=== PATIENT | female | born 1985 | race Caucasian/White ===

== ENCOUNTER 2018-01-09 12:17 | Emergency (ER) | payer OTHER ==
[2018-01-09] MEDS ORDERED: LORAZEPAM 0.5 MG TABLET PO ONE (12:47)
--- NOTE | 2018-01-09 12:57 | ER Document Report ---
ED General - General Chief Complaint: Shortness Of Breath Stated Complaint: BLOOD PRESSURE ISSUES Time Seen by Provider: 01/09/18 12:46 Information source: Patient Notes: Chief complaint: Elevated blood pressure History of complain:( obtained from----patient) 32 years old female with a history of anxiety not taking any medications have been feeling well racing of emotions, unable to sleep, checked her blood pressure and her mom's office it was over 200 therefore came to the ED. She has been having these symptoms periodically. She also had a hysterectomy wondering whether it is a hormonal imbalance causing this symptoms. She was taking anti-anxiolytic medicines in the past. No suicidal homicidal ideation Onset: As above Duration: Gradual Severity: Moderate Quality: As described above Context: History of anxiety Exacerbating factor and relieving factors: REVIEW OF SYSTEMS: CONSTITUTIONAL : Denies fever, chills, or sweats. Denies recent illness. EENT: Denies eye, ear, throat, or mouth pain or symptoms. Denies nasal or sinus congestion or discharge. Denies throat, tongue, or mouth swelling or difficulty swallowing. CARDIOVASCULAR: Denies chest pain. Denies palpitations or racing or irregular heart beat. Denies ankle edema. RESPIRATORY: Denies cough, cold, or chest congestion. Denies shortness of breath, difficulty breathing, or wheezing. GASTROINTESTINAL: Denies distention. Denies nausea, vomiting, or diarrhea. Denies blood in vomitus, stools, or per rectum. Denies black, tarry stools. Denies constipation. GENITOURINARY: Denies difficulty urinating, painful urination, burning, frequency, blood in urine, or discharge. FEMALE GENITOURINARY: Denies vaginal bleeding, heavy or abnormal periods, irregular periods. Denies vaginal discharge or odor. MUSCULOSKELETAL: Denies back or neck pain or stiffness. Denies joint pain or swelling. SKIN: Denies rash, lesions or sores. HEMATOLOGIC : Denies easy bruising or bleeding. LYMPHATIC: Denies swollen, enlarged glands. NEUROLOGICAL: Denies confusion or altered mental status. Denies passing out or loss of consciousness. Denies dizziness or lightheadedness. Denies headache. Denies weakness or paralysis or loss of use of either side. Denies problems with gait or speech. Denies sensory loss, numbness, or tingling. Denies seizures. PSYCHIATRIC: Denies anxiety or stress. Denies depression, suicidal ideation, or homicidal ideation. ALL OTHER SYSTEMS REVIEWED AND NEGATIVE. PHYSICAL EXAMINATION: GENERAL: Well-appearing, well-nourished and in no acute distress. HEAD: Atraumatic, normocephalic. EYES: Pupils equal round and reactive to light, extraocular movements intact, conjunctiva are normal. ENT: Nares patent, oropharynx clear without exudates. Moist mucous membranes. NECK: Normal range of motion, supple without lymphadenopathy LUNGS: Breath sounds clear to auscultation bilaterally and equal. No wheezes rales or rhonchi. HEART: Regular rate and rhythm without murmurs ABDOMEN: Soft, nontender, nondistended abdomen. No guarding, no rebound. No masses appreciated. Examination of genitals-deferred Musculoskeletal: Normal range of motion, no pitting or edema. No cyanosis. NEUROLOGICAL: Cranial nerves grossly intact. Normal speech, normal gait. Normal sensory, motor exams PSYCH: Normal mood, normal affect. Appears very anxious SKIN: Warm, Dry, normal turgor, no rashes or lesions noted. Dictation was performed using [employer] voice recognition software discharge TRAVEL OUTSIDE OF THE [place] IN LAST 30 DAYS: No - HPI Notes: Dictated - Related Data Allergies/Adverse Reactions: acetaminophen [From Percocet] Allergy (Verified 01/09/18 12:18) oxycodone [From Percocet] Allergy (Verified 01/09/18 12:18) Penicillins Allergy (Verified 01/09/18 12:18) Past Medical History - Social History Smoking Status: Never Smoker Frequency of alcohol use: Rare Drug Abuse: None Family History: Reviewed & Not Pertinent Patient has suicidal ideation: No Patient has homicidal ideation: No - Past Medical History Cardiac Medical History: Denies: Hx Coronary Artery Disease, Hx Heart Attack, Hx Hypertension Pulmonary Medical History: Denies: Hx Asthma, Hx Bronchitis, Hx COPD, Hx Pneumonia Neurological Medical History: Denies: Hx Cerebrovascular Accident, Hx Seizures Renal/ Medical History: Denies: Hx Peritoneal Dialysis Musculoskeletal Medical History: Denies Hx Arthritis Psychiatric Medical History: Reports: Hx Depression - post- Past Surgical History: Reports: Hx Section, Hx Hysterectomy, Hx Tubal Ligation - Immunizations Hx Diphtheria, Pertussis, Tetanus Vaccination: Yes Review of Systems - Review of Systems Notes: Dictated Physical Exam - Vital signs Vitals: Temp Pulse Resp BP Pulse Ox 98.0 F 93 16 118/77 100 01/09/18 12:30 01/09/18 12:30 01/09/18 12:30 01/09/18 12:30 01/09/18 12:30 - Notes Notes: Dictated Course - Vital Signs Vital signs: Temp Pulse Resp BP Pulse Ox 98.0 F 93 16 118/77 100 01/09/18 12:30 01/09/18 12:30 01/09/18 12:30 01/09/18 12:30 01/09/18 12:30 Discharge - Discharge Clinical Impression: Anxiety attack Condition: Fair Disposition: HOME, SELF-CARE Instructions: Anxiety ([facility]) Prescriptions: Buspirone HCl [Buspar 5 mg Tablet] 1 tab PO BID #60 tab
--- NOTE | 2018-01-09 13:25 | EKG REPORT ---
SEVERITY:- NORMAL ECG - SINUS RHYTHM : Confirmed by: Michael Perera MD 09-Jan-2018 13:24:35
[2018-01-09 13:59] VITALS: BP 121/71
== END 2018-01-09 14:00 | disposition home or self-care (01) ==
LOC: ER 12:17
DX: F41.9 Anxiety disorder, unspecified (principal); Z90.710 Acquired absence of both cervix and uterus; Z88.6 Allergy status to analgesic agent; Z88.5 Allergy status to narcotic agent; Z88.0 Allergy status to penicillin
CPT/HCPCS: 93005; 93010; 99284

== ENCOUNTER 2018-07-19 08:49 | Emergency (ER) | payer OTHER ==
--- NOTE | 2018-07-19 10:21 | ER Document Report ---
HPI - HPI Patient complains to provider of: pain behind left knee Time Seen by Provider: 07/19/18 09:06 Onset: Yesterday Onset/Duration: Sudden Quality of pain: Throbbing Severity: Mild Pain Level: 2 Context: Patient presents emergency department with complaints of pain behind her left knee, concerned it is a blood clot. Patient reports she was sitting in the car waiting to go into a restaurant when she noticed a lump behind her left knee. At approximately 8:00 last night she felt increased pain throbbing behind her left knee. She denies history of DVTs. Denies recent long trip. Denies trauma. Denies other symptoms such as fever vomiting diarrhea. Associated Symptoms: None Exacerbated by: Denies Relieved by: Denies Similar symptoms previously: No Recently seen / treated by doctor: No - CONSTITUTIONAL Constitutional: DENIES: Fever, Chills - EENT EENT: DENIES: Sore Throat, Ear Pain, Eye problems - NEURO Neurology: DENIES: Headache, Weakness, Vision blurred, Dizzinesss / Vertigo - CARDIOVASCULAR Cardiovascular: DENIES: Chest pain - RESPIRATORY Respiratory: DENIES: Trouble Breathing, Coughing - GASTROINTESTINAL Gastrointestinal: DENIES: Abdominal Pain, Black / Bloody Stools - URINARY Urinary: DENIES: Dysuria, Urgency, Frequency - REPRODUCTIVE Reproductive: DENIES: : - MUSCULOSKELETAL Musculoskeletal: REPORTS: Extremity pain - left knee Past Medical History - General Information source: Patient Last Menstrual Period: Hysterectomy - Social History Smoking Status: Former Smoker Cigarette use (# per day): No Frequency of alcohol use: Rare Drug Abuse: None Lives with: Family Family History: Reviewed & Not Pertinent Patient has suicidal ideation: No Patient has homicidal ideation: No - Past Medical History Cardiac Medical History: Denies: Hx Coronary Artery Disease, Hx Heart Attack, Hx Hypertension Pulmonary Medical History: Denies: Hx Asthma, Hx Bronchitis, Hx COPD, Hx Pneumonia Neurological Medical History: Denies: Hx Cerebrovascular Accident, Hx Seizures Renal/ Medical History: Denies: Hx Peritoneal Dialysis Musculoskeletal Medical History: Denies Hx Arthritis Psychiatric Medical History: Reports: Hx Depression - post- Past Surgical History: Reports: Hx Section, Hx Hysterectomy, Hx Tubal Ligation - Immunizations Hx Diphtheria, Pertussis, Tetanus Vaccination: Yes Vertical Provider Document - CONSTITUTIONAL Agree With Documented VS: Yes Exam Limitations: No Limitations General Appearance: WD/WN - INFECTION CONTROL TRAVEL OUTSIDE OF THE [place] IN LAST 30 DAYS: No - HEENT HEENT: Atraumatic, Normocephalic - NECK Neck: Normal Inspection, Supple. negative: Lymphadenopathy-Left, Lymphadenopathy-Right - RESPIRATORY Respiratory: No Respiratory Distress - CARDIOVASCULAR Cardiovascular: Regular Rate - MUSCULOSKELETAL/EXTREMETIES Musculoskeletal/Extremeties: MAEW, FROM, Tender - Some tenderness with ecchymosis behind patient's left knee. No obvious swelling no deformity good pedal pulse, no obvious swelling - NEURO Level of Consciousness: Awake, Alert, Appropriate Motor/Sensory: No Motor Deficit - DERM Integumentary: Warm, Dry Adult Front & Back Diagram: 1 - Ecchymosis Course - Re-evaluation Re-evalutation: 07/19/18 10:19 Instructed on pending Doppler. Dictation of this chart was performed using voice recognition software; therefore, there may be some unintended grammatical errors. - Vital Signs Vital signs: Temp Pulse Resp BP Pulse Ox 98.8 F 73 18 126/83 H 99 07/19/18 08:53 07/19/18 08:53 07/19/18 08:53 07/19/18 08:53 07/19/18 08:53 - Diagnostic Test Radiology reviewed: Image reviewed, Reports reviewed - EXAM DESCRIPTION: VENOUS UNILATERAL LOWER COMPLETED DATE/TIME: 07/19/2018 1:42 pm REASON FOR STUDY: P AIN, SWELLING,KNOT BEHIND KNEE COMPARISON: None. TECHNIQUE: Dynamic and static araya scale and color images acquired of the right leg venous system. Selected spectral images acquired with additional compression and augmentation maneuvers. The contralateral common femoral vein and saphenofemoral junction were also imaged. Images stored on PACS. LIMITATIONS: None. FINDINGS: COMMON FEMORAL: Normal phasicity, compression and augmentation. No visualized echogenic material on araya scale. No defects on color images. FEMORAL: Normal compression and augmentation. No visualized echogenic material on araya scale. No defects on color images. POPLITEAL: Normal compression, augmentation. No vi sualized echogenic material on araya scale. No defects on color images. CALF VESSELS: Normal compression, augmentation. No visualized echogenic material on araya scale. No defects on color images. GSV and SSV: Normal compression, augmentation. No visualized echogenic material on araya scale. No defects on color images. ANY DEEP VENOUS INSUFFICIENCY: Not evaluated. ANY EVIDENCE OF POPLITEAL CYST: No. OTHER: No other significant finding. CONTRALATERAL COMMON FEMORAL VEIN AND SAPHENOFEMORAL JUNCTION: Normal phasicity, compression and augmentation. No visualized echogenic material on araya scale. No defects on color images. IMPRESSION: NO EVIDENCE OF DVT OR SVT IN THE RIGHT LEG. TECHN [employer] DOCUMENTATION: JOB ID: [id number] [employer]- All Rights Reserved Reading location - IP/workstation name: [email or web address] Dictated by: KATHLEEN CRENSHAW MD 1342 CC: SHAN ZAPATA NP > 07/19/18 1359 Discharge - Discharge Clinical Impression: Pain behind left knee, ecchymosis Condition: Stable Disposition: HOME, SELF-CARE Additional Instructions: *You have been evaluated for pain behind her left knee *No acute injury was noted on your Doppler, the images will be sent for further evaluation if something is seen you will be contacted. *Rest/Ice to the back of your knee *Follow-up with your primary care provider within 1 week *Take ibuprofen as indicated for pain *Return to ED for worsening condition, changes, needs Monitor your blood pressure. Your blood pressure was elevated today. This may be because you were anxious, in pain or because you need medication. It is important to follow up with your primary care provider for full evaluation. Forms: Elevated Blood Pressure
[2018-07-19 10:34] VITALS: BP 124/75
--- NOTE | 2018-07-19 13:59 | RADIOLOGY REPORT (SQ) ---
EXAM DESCRIPTION: VENOUS UNILATERAL LOWER COMPLETED DATE/TIME: 07/19/2018 1:42 pm REASON FOR STUDY: PAIN, SWELLING,KNOT BEHIND KNEE COMPARISON: None. TECHNIQUE: Dynamic and static araya scale and color images acquired of the right leg venous system. S elected spectral images acquired with additional compression and augmentation maneuvers. The contrala teral common femoral vein and saphenofemoral junction were also imaged. Images stored on PACS. LIMITATIONS: None. FINDINGS: COMMON FEMORAL: Normal phasicity, compression and augmentation. No visualized echogenic ma terial on araya scale. No defects on color images. FEMORAL: Normal compression and augmentation. No visualized echogenic material on araya scale. No defe cts on color images. POPLITEAL: Normal compression, augmentation. No visualized echogenic material on araya scale. No defec ts on color images. CALF VESSELS: Normal compression, augmentation. No visualized echogenic material on araya scale. No de fects on color images. GSV and SSV: Normal compression, augmentation. No visualized echogenic material on araya scale. No def ects on color images. ANY DEEP VENOUS INSUFFICIENCY: Not evaluated. ANY EVIDENCE OF POPLITEAL CYST: No. OTHER: No other significant finding. CONTRALATERAL COMMON FEMORAL VEIN AND SAPHENOFEMORAL JUNCTION: Normal phasicity, compression and augmentation. No visualized echogenic material on araya scale. No de fects on color images. IMPRESSION: NO EVIDENCE OF DVT OR SVT IN THE RIGHT LEG. TECHNICAL DOCUMENTATION: JOB ID: [id number] [facility]- All Rights Reserved Reading location - IP/workstation name: [email or web address]
== END 2018-07-19 10:36 | disposition home or self-care (01) ==
LOC: ER 08:49
DX: M25.562 Pain in left knee (principal); R23.3 Spontaneous ecchymoses; Z90.710 Acquired absence of both cervix and uterus
CPT/HCPCS: 93971; 99283